=== PATIENT | male | born 1980 ===

== ENCOUNTER 2017-06-18 15:24 | Emergency (ER) | payer SELFPAY ==
[~2017-06-18] VITALS: Ht 170.2 cm; Wt 75.0 kg
== END 2017-06-18 17:51 | disposition left against medical advice (07) ==
LOC: NED 15:24
DX: S69.92XA Unspecified injury of left wrist, hand and finger(s), initial encounter (principal); X58.XXXA Exposure to other specified factors, initial encounter
CPT/HCPCS: 99281